=== PATIENT | female | born 1990 | race Caucasian/White ===

== ENCOUNTER 2023-12-08 10:09 | Emergency (ER) | payer OTHER, SELFPAY ==
[2023-12-08 10:21] VITALS: BP 131/90
--- NOTE | 2023-12-08 11:10 | ED.GENMED ---
Addendum entered and electronically signed by HONEY Benjamin 12/11/23 09:30:
Pt was discharged on Keflex for abscess. Culture positive for Staph aureus MRSA. Patient is getting better though Not listed. She is breast-feeding and therefore we will keep on Keflex and symptoms are improving. She is scheduling to follow-up
with DR Love.
Original Note:
History of Present Illness
<Isela Perez PA-C - Last Filed: 12/08/23 17:30>
General
Chief Complaint: Breast Problem
Source: patient
Time Seen by Provider: 12/08/23 10:59
History of Present Illness
History of Present Illness:
33yo F who is currently 3 weeks presenting for evaluation of right breast pain x 3 days. She reports an area of swelling to the right inferior breast that has been constant for the past several days. She believes she has a clogged
milk duct. She has been but she states that no milk is coming out of the area of swelling. She has also tried warm compresses and ibuprofen without any improvement in the pain. She denies any fevers, chills, or nipple discharge.
Past History
<YOSEPH Larose Last Filed: 12/08/23 17:30>
Past History
ED Past Medical History: None
ED Past Surgical History: None
Social History
Tobacco: Non-smoker
Alcohol: None
Drug: None
Phy Exam
<Isela ePrez PA-C - Last Filed: 12/08/23 17:30>
Physical Exam
Physical Exam:
Right breast: There is an area of induration and tenderness at the 5:00 position of the areola. +Warmth to touch. No erythema or fluctuance.
General Physical Exam
General Presentation: well appearing and no apparent distress
General Skin: warm and dry
Course
<Isela Perez PA-C - Last Filed: 12/08/23 17:30>
Orders/Labs/Results
Orders:
Orders
12/08/23 11:42
Acetaminophen [Tylenol] 1,000 mg PO NOW STA
Ibuprofen [Motrin] 600 mg PO NOW STA
Oxycodone [Roxicodone] 5 mg PO NOW STA
12/08/23 11:54
Complete Blood Count/With Diff Urgent
12/08/23 11:59
US Breast Right Ltd [facility] Urgent
12/08/23 13:01
[facility] CONSULT Urgent
Consulting Provider: Reynaldo Walden
Was physician already notified: Yes
Reason for Consult/Procedure: R breast abscess
Acknowledgement that appropriate orders are entered: Yes
12/08/23 16:45
Wound/Abscess/Other Culture Routine
CLEMENCIA Source: BR
Specimen Description: RT
Date Specimen was Collected: 12/08/23
Time Specimen was Collected: 16:30
Comment: right breast aspirate
12/08/23 17:02
Cephalexin Monohydrate [Keflex] 500 mg PO NOW STA
Abnormal Lab Results
12/08/23
11:54
RBC 4.10 L 10^6/uL
(4.20-5.40)
Hgb 11.1 L g/dL
(12.0-16.0)
Hct 35.9 L %
(37.0-47.0)
MCHC 30.9 L g/dL
(33.0-37.0)
Plt Count 496 H 10^3/uL
(130-400)
Absolute Monos (auto) 0.9 H 10^3/uL
(0.1-0.6)
Lymphocytes % 19.4 L %
(20.5-51.1)
Monocytes % 10.3 H %
(1.7-9.3)
12/08/23 11:54
Vital Signs
Initial and Last Documented VS:
Initial Vital Signs
Temp Pulse Resp BP Pulse Ox
98.2 F 78 18 131/90 99
12/08/23 10:21 12/08/23 10:21 12/08/23 10:21 12/08/23 10:21 12/08/23 10:21
Last Documented Vital Signs
Temp Pulse Resp BP Pulse Ox
98.9 F 65 19 119/83 100
12/08/23 15:30 12/08/23 16:59 12/08/23 16:59 12/08/23 16:59 12/08/23 16:59
<Jamie Chou, DO - Last Filed: 12/08/23 14:07>
Orders/Labs/Results
Orders:
Orders
12/08/23 11:42
Acetaminophen [Tylenol] 1,000 mg PO NOW STA
Ibuprofen [Motrin] 600 mg PO NOW STA
Oxycodone [Roxicodone] 5 mg PO NOW STA
12/08/23 11:54
Complete Blood Count/With Diff Urgent
12/08/23 11:59
US Breast Right Ltd [facility] Urgent
12/08/23 13:01
[facility] CONSULT Urgent
Consulting Provider: Reynaldo Walden
Was physician already notified: Yes
Reason for Consult/Procedure: R breast abscess
Acknowledgement that appropriate orders are entered: Yes
12/08/23 16:45
Wound/Abscess/Other Culture Routine
CLEMENCIA Source: BR
Specimen Description: RT
Date Specimen was Collected: 12/08/23
Time Specimen was Collected: 16:30
Comment: right breast aspirate
12/08/23 17:02
Cephalexin Monohydrate [Keflex] 500 mg PO NOW STA
Abnormal Lab Results
12/08/23
11:54
RBC 4.10 L 10^6/uL
(4.20-5.40)
Hgb 11.1 L g/dL
(12.0-16.0)
Hct 35.9 L %
(37.0-47.0)
MCHC 30.9 L g/dL
(33.0-37.0)
Plt Count 496 H 10^3/uL
(130-400)
Absolute Monos (auto) 0.9 H 10^3/uL
(0.1-0.6)
Lymphocytes % 19.4 L %
(20.5-51.1)
Monocytes % 10.3 H %
(1.7-9.3)
12/08/23 11:54
Vital Signs
Initial and Last Documented VS:
Initial Vital Signs
Temp Pulse Resp BP Pulse Ox
98.2 F 78 18 131/90 99
12/08/23 10:21 12/08/23 10:21 12/08/23 10:21 12/08/23 10:21 12/08/23 10:21
Last Documented Vital Signs
Temp Pulse Resp BP Pulse Ox
98.9 F 65 19 119/83 100
12/08/23 15:30 12/08/23 16:59 12/08/23 16:59 12/08/23 16:59 12/08/23 16:59
<Isela Perez PA-C - Last Filed: 12/08/23 17:30>
MDM/Problems Addressed
Differential Diagnosis Includes:
33yoF here with R breast pain and swelling x 3 days. She is currently . No f/c. Vitals stable and she is non-toxic appearing. There is an area of induration and tenderness on exam. Differential diagnosis includes but is not limited to:
mastitis, clogged milk duct, breast abscess
Discussed case with Dr. Love, breast surgeon, who recommends CBC and breast ultrasound.
<Isela Perez PA-C - Last Filed: 12/08/23 17:30>
*Critical Care Note
Total Time (30-74mins, 75-104mins- exclusive of procedures): Not Applicable
<Isela Perez PA-C - Last Filed: 12/08/23 17:30>
Update Note
Update Note:
Breast ultrasounds shows findings suggestive of an abscess. White count is normal. Breast surgeon recommending IR drainage.
1700: Patient returned from IR. 2cc of purulent drainage aspirated during procedure. Fluid sent for culture. Patient tolerated procedure well.
Patient discharged with prescription for Keflex. Advised warm compresses, massage, and PRN Tylenol/ibuprofen. Advised f/u with breast surgeon and ED return precautions discussed. Patient discharged in stable condition.
ED Attending Note
<Isela Perez PA-C - Last Filed: 12/08/23 17:30>
-
Portions of this chart may have been created with voice recognition software.� Occasional wrong word or��sound alike� substitutions may have occurred due to the inherent limitations of voice recognition software.
<Jamie Chou, - Last Filed: 12/08/23 14:07>
ED Attending Note
Patient seen and examined by attending physician: Yes
I performed a history and physical exam of patient and discussed management with resident, I reviewed resident's note and agree with documented findings and plan of care.: Yes
ED Attending Note:
I have reviewed and agree with history and treatment plan by Isela Perez. My exam revealed 33-year-old female, afebrile, no acute distress. Induration swelling at 7 o'clock position inferior to areola right breast. Ultrasound shows fluid
collection concerning for galactinoma vs abscess. D/w Dr. Love, recommends IR drainage and f/u with her in office.
Discharge Plan
Departure
Patient Disposition: Home (Routine Discharge)
Date of Disposition: 12/08/23
Time of Disposition: 17:05
Patient with high blood pressure during this ER visit?: No
Discharge Problem:
Abscess of breast
Prescriptions:
New
cephalexin 500 mg capsule
500 mg PO QID Qty: 27 0RF
No Action
norgestimate-ethinyl estradiol [Tri-Previfem (28)] 1 TAB tablet
1 tab PO DAILY
Referrals:
Katheryn Love MD [Active] -
Florina Dockery DO [Family Provider] -
Activity Restrictions/Additional Instructions:
Take antibiotics as prescribed. Apply warm compresses to affected area. Take Tylenol and ibuprofen for pain.
Please follow-up with the breast specialist. Return to the ER with any worsening symptoms, fevers, chills.
Interventions
Interventions:
*Risk Screen - Suicide Last Done: 12/08/23 15:15
*General Assessment Last Done: 12/08/23 15:15
*Neglect/Abuse Screening Last Done: 12/08/23 15:15
*ED COVID-19 Vaccine History Last Done: 12/08/23 15:15
ED-Skin Assessment Last Done: 12/08/23 12:00
Discharge Date and Time
Print Language: TUVALUAN
[2023-12-08] MEDS: MOTRIN 600 MG PO (11:47)
[2023-12-08] MEDS: ROXICODONE 5 MG PO (11:47)
[2023-12-08] MEDS: TYLENOL 1000 MG PO (11:47)
[2023-12-08 12:26] LABS: % Basophils 0.8 % (0-2); % Eosinophils 1.2 % (0-6); % Immature Granulocytes 0.2 % (0-0.5); % Lymphocytes 19.4 % (20.5-51.1); % Monocytes 10.3 % (1.7-9.3); % Neutrophils 68.1 % (42.2-75.2); Absolute Basophils 0.1 10^3/uL (0-0.2); Absolute Eosinophils 0.1 10^3/uL (0-0.7); Absolute Lymphocytes 1.6 10^3/uL (1.2-3.4); Absolute Monocytes 0.9 10^3/uL (0.1-0.6); Absolute Neutrophils 5.7 10^3/uL (1.4-6.5); Hematocrit 35.9 % (37.0-47.0); Hemoglobin 11.1 g/dL (12.0-16.0); Mean Corp Hgb Conc. 30.9 g/dL (33.0-37.0); Mean Corpuscular Hgb 27.1 pg (27.0-31.0); Mean Corpuscular Volume 87.6 fL (81.0-99.0); Mean Platelet Volume 9.6 fL (7.4-10.4); Nucleated Red Blood Cells % 0 %; Platelet Count 496 10^3/uL (130-400); Red Cell Dist. Width 13.7 % (11.5-14.5); White Blood Cell Count 8.4 10^3/uL (4.8-10.8)
[2023-12-08 13:04] VITALS: BP 115/78
--- NOTE | 2023-12-08 14:42 | LACTATION ---
Clementine is suffering from a plugged milk duct behind the areola. She is due to have it drained. She pumped with our medela breastpump and collected 1 oz. she was collecting 2.5 oz. before this issue began. I encouraged her to use a smaller breast
flange. we went from a 24mm to a 21mm flange. Clementine was able to express another 10ml with the smaller flange. recommended applying ice frequently to reduce inflammation. Its important that she continues to express her breast milk every 2-3 hours.
[2023-12-08 15:30] VITALS: BP 119/83; BP_SYST 65
[2023-12-08 16:59] VITALS: BP 119/83
[2023-12-08] MEDS: KEFLEX 500 MG PO (17:14)
== END 2023-12-08 17:59 | disposition home or self-care (01) ==
LOC: EMR 10:09
PROVIDERS: Physician Assistant; CONSULT PHYSICIAN Radiology Vascular & Interventional Radiology; EMERGENCY PHYSICIAN Emergency Medicine; FAMILY PHYSICIAN Family Medicine
DX: N61.1 Abscess of the breast and nipple (principal)
CPT/HCPCS: 99285; 10160; 76642; 76942; 85025; 87070; 87147; 87186; 87205